=== PATIENT | male | born 1960 | race Caucasian/White ===

== ENCOUNTER 2022-01-21 12:09 | Emergency (ER) | payer BC, OTHER ==
[2022-01-21 13:11] LABS: #Basophils 0.1 10x3/uL (0.0-0.2); #Eosinphils 0.1 10x3/uL (0.0-0.5); #Monocytes 0.4 10x3/uL (0.0-1.1); %Basophils 0.5 % (0.0-2.0); %Eosinophils 0.5 % (0.0-6.0); %Lymphocytes 13.8 % (18.0-47.0); %Monocytes 3.2 % (0.0-10.0); %Neutrophils 81.4 % (40.0-75.0); Hemoglobin 14.2 g/dL (13.5-17.5); Mean Corpuscular HGB CONC 34.2 g/dL (32.0-36.0); Mean Corpuscular Hemoglobin 29.2 pg (27.0-33.0); Mean Corpuscular Volume 85.4 fl (81.2-95.1); Mean Platelet Volume 9.6 fl (7.4-10.4); Platelet Count 367 10x3/uL (150-450); RBC Distribution Width 13.5 % (11.5-14.5); Red Blood Cell (RBC) Count 4.86 10x6/uL (4.32-5.72)
[2022-01-21 13:29] LABS: ALT (SGPT) 12 U/L (8-55); AST (SGOT) 26 U/L (5-34); Albumin 4.6 g/dL (3.4-4.8); Alkaline Phosphatase 89 U/L (40-110); Anion Gap 17 mmol/L (10-20); BUN (Urea Nitrogen) 31 mg/dL (8.4-25.7); Bilirubin, Total 0.6 mg/dL (0.2-1.2); CK (CPK) 350 U/L (30-200); Calc. Creatinine Clearance 0 mL/min (70-130); Carbon Dioxide 22 mmol/L (23-31); Chloride 104 mmol/L (98-107); Estimated GFR 37; Globulin 3.5 g/dL (2.4-3.5); Glucose 109 mg/dL (80-115); Potassium 4.3 mmol/L (3.5-5.1); Protein, Total 8.1 g/dL (5.8-8.1); Sodium 139 mmol/L (136-145)
== END 2022-01-21 15:39 | disposition home or self-care (01) ==
LOC: CSHERS 12:09
DX: E86.0 Dehydration (principal); I10 Essential (primary) hypertension
CPT/HCPCS: 71045; 80053; 82550; 84484; 85025; 93005; 96360; 96361

== ENCOUNTER 2022-11-17 10:12 | Emergency (ER) | payer OTHER ==
[~2022-11-17 10:12] MED LIST: Iopamidol 370 76% 100 ML VIAL ONE
[2022-11-17 10:49] LABS: #Monocytes 0.7 10x3/uL (0.0-1.1); #Neutrophils 3.8 10x3/uL (1.5-8.4); %Basophils 0.8 % (0.0-2.0); %Eosinophils 0.8 % (0.0-6.0); %Lymphocytes 9.4 % (18.0-47.0); %Monocytes 14.3 % (0.0-10.0); %Neutrophils 74.1 % (40.0-75.0); Hemoglobin 13.1 g/dL (13.5-17.5); Mean Corpuscular HGB CONC 33.2 g/dL (32.0-36.0); Mean Corpuscular Hemoglobin 28.9 pg (27.0-33.0); Mean Corpuscular Volume 87.2 fl (81.2-95.1); Mean Platelet Volume 9.9 fl (7.4-10.4); Platelet Count 255 10x3/uL (150-450); RBC Distribution Width 13.5 % (11.5-14.5); Red Blood Cell (RBC) Count 4.53 10x6/uL (4.32-5.72); White Blood Cell (WBC) Count 5.1 10x3/uL (3.5-10.5)
[2022-11-17 11:16] LABS: ALT (SGPT) 12 U/L (8-55); AST (SGOT) 19 U/L (5-34); Albumin 4.3 g/dL (3.4-4.8); Alkaline Phosphatase 86 U/L (40-110); Anion Gap 16 mmol/L (10-20); BUN (Urea Nitrogen) 13 mg/dL (8.4-25.7); Bilirubin, Total 0.3 mg/dL (0.2-1.2); Calc. Creatinine Clearance 0 mL/min (70-130); Carbon Dioxide 19 mmol/L (23-31); Chloride 107 mmol/L (98-107); Estimated GFR 79; Globulin 2.6 g/dL (2.4-3.5); Glucose 101 mg/dL (80-115); Lipase 18 U/L (8-78); Protein, Total 6.9 g/dL (5.8-8.1); Sodium 138 mmol/L (136-145)
[2022-11-17] MEDS ORDERED: Morphine 4 MG/ML VIAL ONE (11:45)
[2022-11-17 13:49] LABS: Troponin I 0.014 ng/mL (< 0.028)
[2022-11-17] MEDS ORDERED: Ketorolac Tromethamine 30 MG/ML VIAL ONE (14:49)
== END 2022-11-17 14:56 | disposition home or self-care (01) ==
LOC: CSHERS 10:12
DX: R07.9 Chest pain, unspecified (principal); F17.210 Nicotine dependence, cigarettes, uncomplicated
CPT/HCPCS: 36415; 70450; 71045; 71275; 80053; 83690; 84484; 85025; 85379; 93005; 96374; 96375; J1885; J2270; Q9967

== ENCOUNTER 2023-09-09 12:05 | Outpatient (CLI) | payer OTHER | END 2023-09-09 12:06 | disposition home or self-care (01) | LOC: CSHCT 12:05 | PROVIDERS: ATTEND Orthopaedic Surgery | DX: M19.012 Primary osteoarthritis, left shoulder (principal) ==

== ENCOUNTER 2023-09-26 09:14 | Emergency (ER) | payer OTHER ==
[2023-09-26] MEDS ORDERED: Ketorolac Tromethamine 30 MG (1 mL) VIAL ONE (09:57)
[2023-09-26] MEDS ORDERED: Proparacaine 0.5% Opth 15 ML BOT ONE (09:58)
[2023-09-26] MEDS ORDERED: Fluorescein Opthalmic Strip ONE (10:02)
[2023-09-26] MEDS ORDERED: AcetaZOLAMIDE 250 MG TAB PO SCH (10:30)
[2023-09-26] MEDS ORDERED: Timolol 0.25% Ophth Soln 5 ml Bottle R EYE SCH (10:30)
[2023-09-26] MEDS ORDERED: Pilocarpine 2% Ophth Drops 15 ML BOT R EYE SCH (10:30)
[2023-09-26] MEDS ORDERED: AcetaZOLAMIDE ER 500 MG CAP PO SCH (10:30)
[2023-09-26] MEDS ORDERED: Brimonidine Tartrate 0.2% Ophth Soln 5 ml Bottle R EYE SCH (10:45)
== END 2023-09-26 10:50 | disposition home or self-care (01) ==
LOC: CSHERS 09:14
DX: H40.9 Unspecified glaucoma (principal); I10 Essential (primary) hypertension; F17.210 Nicotine dependence, cigarettes, uncomplicated
CPT/HCPCS: 96372; 99283; J1885